=== PATIENT | male | born 1960 | race Caucasian/White ===

== ENCOUNTER 2019-07-10 10:54 | Outpatient (CLI) | payer MEDICARE | END 2019-07-10 10:55 | disposition home or self-care (01) | LOC: CTENTCT 10:54 | PROVIDERS: ATTEND Specialist | DX: R51 Headache (principal); J33.9 Nasal polyp, unspecified | CPT/HCPCS: 70486 ==

== ENCOUNTER 2019-08-01 11:40 | Emergency (ER) | payer MEDICARE ==
[2019-08-01] MEDS ORDERED: cefTRIAXone\\ROCEPHIN 2 GM VIAL ONE (13:12)
[2019-08-01 13:21] LABS: #Basophils 0.1 thou/uL (0.0-0.2); #Eosinphils 0.2 thou/uL (0.0-0.7); #Lymphocytes 1.9 thou/uL (1.20-3.40); #Monocytes 0.7 thou/uL (0.11-0.59); #Neutrophils 7.6 thou/uL (1.40-6.50); %Basophils 0.7 % (0.0-1.0); %Eosinophils 1.5 % (0.0-10.0); %Lymphocytes 17.9 % (21.0-51.0); %Neutrophils 72.9 % (42.0-75.0); Hemoglobin 15.2 g/dL (14.0-18.0); Mean Corpuscular HGB CONC 34.2 g/dL (32.0-36.0); Mean Corpuscular Hemoglobin 32.2 pg (27.0-31.0); Mean Corpuscular Volume 94.1 fL (78.0-98.0); Mean Platelet Volume 6.9 fL (7.4-10.4); Platelet Count 241 thou/uL (130-400); RBC Distribution Width 11.7 % (11.5-14.5); Red Blood Cell (RBC) Count 4.71 mill/uL (4.70-6.10); White Blood Cell (WBC) Count 10.4 thou/uL (4.8-10.8)
--- NOTE | 2019-08-01 13:41 | RAD ---
EXAM: 4 views of the right knee HISTORY: Right knee redness and pain COMPARISON: None FINDINGS: No knee effusion is seen. There is no evidence of acute fracture or dislocation. Moderate t ricompartmental degenerative changes are seen. No soft tissue swelling is present. IMPRESSION: Moderate right knee osteoarthritis without evidence of acute osseous abnormality.
[2019-08-01 13:43] LABS: ALT (SGPT) 39 U/L (8-55); AST (SGOT) 20 U/L (5-34); Albumin 4.7 g/dL (3.5-5.0); Alkaline Phosphatase 67 U/L (40-110); Anion Gap 11 mmol/L (10-20); BUN (Urea Nitrogen) 17 mg/dL (8.4-25.7); Bilirubin, Total 0.4 mg/dL (0.2-1.2); Calc. Creatinine Clearance 0 mL/min (70-130); Calcium 9.6 mg/dL (7.8-10.44); Carbon Dioxide 26 mmol/L (22-29); Chloride 101 mmol/L (98-107); Estimated GFR-MDRD 88; Glucose 120 mg/dL (70-105); Protein, Total 7.7 g/dL (6.0-8.3); Sodium 134 mmol/L (136-145)
== END 2019-08-01 15:20 | disposition home or self-care (01) ==
LOC: ERS 11:40
DX: M25.561 Pain in right knee (principal); I10 Essential (primary) hypertension; Z87.891 Personal history of nicotine dependence; Z79.899 Other long term (current) drug therapy
CPT/HCPCS: 36415; 80053; 83605; 85025; 87040; 96365; 96367; J0696; J3370

== ENCOUNTER → 2019-08-01 | Day surgery (SDC) | payer MEDICARE ==
[2019-07-31 15:01] VITALS: BMI 33.2
== END ==
LOC: SDC 11:58
PROVIDERS: ATTEND Specialist
DX: J32.4 Chronic pansinusitis (principal); J33.9 Nasal polyp, unspecified; J34.3 Hypertrophy of nasal turbinates; Z53.9 Procedure and treatment not carried out, unspecified reason

== ENCOUNTER 2019-08-08 10:16 | Day surgery (SDC) | payer MEDICARE ==
[2019-08-07 14:25] VITALS: BMI 32.9
[2019-08-08 10:56] LABS: INR-International Normal Ratio 0.9; PTT 26.9 SEC (22.9-36.1); Prothrombin Time 12.2 SEC (12.0-14.7)
[2019-08-08] MEDS ORDERED: Oxymetazoline HCl 0.05% ( 15 ML ) ONE (10:56)
[2019-08-08 11:09] LABS: Anion Gap 13 mmol/L (10-20); BUN (Urea Nitrogen) 17 mg/dL (8.4-25.7); Calc. Creatinine Clearance 144 mL/min (70-130); Calcium 9.5 mg/dL (7.8-10.44); Carbon Dioxide 23 mmol/L (22-29); Chloride 104 mmol/L (98-107); Estimated GFR-MDRD 89; Glucose 118 mg/dL (70-105); Potassium 4.4 mmol/L (3.5-5.1); Sodium 136 mmol/L (136-145)
[2019-08-08] MEDS ORDERED: Lidocaine 1% w/Epinephrine 1:100K 20 ML VIAL ONE (12:40)
[2019-08-08] MEDS ORDERED: EPINEPHrine 1 MG/ML AMP ONE (12:40)
[2019-08-08] MEDS ORDERED: Fentanyl 250 MCG/5 ML VIAL ONE (12:52)
[2019-08-08] MEDS ORDERED: Triamcinolone 40 MG/ML VIAL ONE (13:39)
--- NOTE | 2019-08-09 06:47 | OP ---
DATE OF PROCEDURE: 08/08/2019 PREOPERATIVE DIAGNOSES: Chronic sinusitis, nasal polyposis, hypertrophic inferior turbinates. POSTOPERATIVE DIAGNOSES: Chronic sinusitis, nasal polyposis, hypertrophic inferior turbinates. PROCEDURES PERFORMED: 1. Bilateral nasal endoscopy with polypectomy. 2. Bilateral nasal endoscopy with submucosal resection of inferior turbinates. 3. Bilateral nasal endoscopy with frontal sinusotomy. 4. Bilateral nasal endoscopy with maxillary antrostomy with removal of tissue. 5. Bilateral nasal endoscopy with total ethmoidectomy. 6. Bilateral nasal endoscopy with sphenoidotomy and stereotactic imaging. FINDINGS: Diffuse polyps were encountered at both maxillary sinuses. Blood loss was estimated approximately 200 mL. PROCEDURE IN DETAIL: BILATERAL NASAL ENDOSCOPY WITH POLYPECTOMY: Under endoscopic visualization, the nasal cavity was systematically examined and encountered large inflammatory polyps. These polyps were infiltrated 1% lidocaine with 1:100,000 epinephrine. The polyps were then addressed using the [employer] shaver. Then, the polyps were removed with care not to injure the surrounding normal mucosa. Samples of polyps were taken and sent for histologic evaluation. Bleeding was then controlled. BILATERAL NASAL ENDOSCOPY WITH SUBMUCOSAL RESECTION OF INFERIOR TURBINATES: After consent was obtained, the patient was identified, brought to the operating room, and placed on the operating room table in the supine position. Consent was obtained, notifying the patient of the possibility of additional infections, bleeding, brain injury, and eye/orbital injury. The patient was placed on the operating room table, and general endotracheal anesthesia and intravenous access was obtained. The patient was then positioned, prepped and draped for endoscopic sinus surgery. Nasal preparation included trimming nasal vestibular hairs and spraying in topical Afrin. We then placed Afrin topical solution on nasal pledgets and strategically located them intranasally. The perinasal mucosa was injected with 1% lidocaine with 1:100,000 epinephrine in the submucoperichondrial plane of the septum, lateral nasal wall, and anterior to the uncinate. The patient was then prepped and draped in a sterile fashion and positioned for endoscopic sinus surgery. With the 0-degree endoscope, the patient underwent systematic nasal endoscopy. There were no suspicious internasal masses or lesions identified. We then focused our attention to the osteomeatal complex region under the middle turbinate. The inferior turbinates were visualized with a 0 degree endoscope and outfractured with a Jv elevator. The inferior medial aspect was cauterized with the electrocautery. Hemostasis was obtained . After adequate airway was established, we turned our attention to the contralateral side and used a similar procedure. Again, a Jv elevator was used to outfracture inferior turbinates under endoscopic visualization. With a suction cautery, the free inferior medial aspect was cauterized under direct visualization along the length of the inferior turbinate. At this point, we then turned our attention to the contralateral side and proceeded with endoscopic sinus surgery. At the completion of the case, Rice keel splints were placed in the ethmoid cavities after the ethmoidectomy. There were no complications. The patient tolerated the procedure well and was discharged to the recovery room in stable condition prior to return to the preoperative day stay with ultimate discharge home. Prescriptions for pain medication and antibiotics were provided. The patient received intramuscular Depo-Medrol during the case. BILATERAL NASAL ENDOSCOPY WITH FRONTAL SINUSOTOMY: Following the ethmoidectomy, we then turned our attention to the frontal nasal recess. The agger nasi cells were addressed and the frontal recess was exposed. The natural opening to the frontal sinus was identified. At this point, any obstructing shrouds of mucosa and bony fragments were removed with a curved microdebrider. The wound was then examined and found to be free of any obstructing debris. We then turned our attention to the contralateral side and performed a similar procedure again under endoscopic visualization using a 45-degree scope. We were able to visualize the frontal recess. Obstructing shrouds of mucosa and bone were removed with a microdebrider. The natural os of frontal sinus was identified and enlarged and irrigated. At this point, the frontal sinusotomy was completed and we turned to the next area of concern. BILATERAL NASAL ENDOSCOPY WITH MAXILLARY ANTROSTOMY WITH REMOVAL OF TISSUE: The uncinate was then identified and the extent of the uncinate was appreciated by out-fracturing the uncinate with the ball-tip probe. We then used the sickle blade to disarticulate the uncinate from the lateral nasal wall. This was then removed with straight biting and upbiting punches with the remaining shrouds of mucosa and bony septum removed with the micro-debrider. The natural os of the maxillary sinus was then identified and enlarged with the maxillary punches and back biting forceps. BILATERAL NASAL ENDOSCOPY WITH TOTAL ETHMOIDECTOMY: The anterior face of the ethmoid bulla was entered and with the micro-debrider, dissection continued posteriorly to the ground lamella. The limits of dissection included the insertion of the middle turbinate, medial orbital wall, and base of skull. We similarly identified the frontal recess and removed shrouds of bone and debris in that region to obtain patency into the agger nasi region and frontal recess. We then entered the ground lamella and its anteroinferior aspect and proceeded posteriorly, opening the posterior ethmoid air-cell system. Again, the limits of dissection included the base of skull and medial orbital wall. BILATERAL NASAL ENDOSCOPY WITH SPHENOIDOTOMY AND STEREOTACTIC IMAGING: The anterior face of the sphenoid was identified and entered in its extreme anteroinferior aspect. A sphenoid punch was then used to enlarge the sphenoidotomy and no injury to the optic nerve or internal carotid artery occurred. Job ID: [id number]
--- NOTE | 2019-08-13 10:25 | EKG ---
Test Reason : PREOP Blood Pressure : / mmHG Vent. Rate : 078 BPM Atrial Rate : 078 BPM P-R Int : 150 ms QRS Dur : 082 ms QT Int : 382 ms P-R-T Axes : 060 024 045 degrees QTc Int : 435 ms Normal sinus rhythm ST abnormality, possible digitalis effect Abnormal ECG No previous ECGs available Confirmed by GINETTE BRADSHAW MD ([id number]) on 08/13/2019 10:25:15 AM Referred By: PETEY Confirmed By:GINETTE BRADSHAW MD
== END 2019-08-08 15:45 | disposition home or self-care (01) ==
LOC: SDC 10:16
PROVIDERS: ATTEND Specialist
PROC: 09TV8ZZ Resection of Left Ethmoid Sinus, Via Natural or Artificial Opening Endoscopic (ICD-10-PCS; principal; 2019-08-08)
PROC: 09TU8ZZ Resection of Right Ethmoid Sinus, Via Natural or Artificial Opening Endoscopic (ICD-10-PCS; 2019-08-08)
PROC: 09TL8ZZ Resection of Nasal Turbinate, Via Natural or Artificial Opening Endoscopic (ICD-10-PCS; 2019-08-08)
DX: J32.0 Chronic maxillary sinusitis (principal); J32.1 Chronic frontal sinusitis; J32.2 Chronic ethmoidal sinusitis; J32.3 Chronic sphenoidal sinusitis; J33.9 Nasal polyp, unspecified
CPT/HCPCS: 36415; 80048; 85610; 85730; 93005; 93010; J0171; J3010; J3301

== ENCOUNTER 2023-08-08 14:30 | Inpatient (IN) | payer MEDICARE ==
[2023-08-08 15:04] VITALS: BMI 32.5
[2023-08-10] MEDS ORDERED: fentaNYL 50 mcg/mL 1 mL Vial ONE ×7 (06:53→09:46)
[2023-08-10] MEDS ORDERED: Vancomycin 1 GM/200 ML (FROZEN) BAG ONE (07:19)
[2023-08-10] MEDS ORDERED: PROPOFOL 200 MG/20 ML VIAL ONE (07:19)
[2023-08-10] MEDS ORDERED: Lidocaine 1% PF 5 ML VIAL ONE (07:19)
[2023-08-10] MEDS ORDERED: Labetalol HCl 100 MG/20 ML VIAL ONE (07:19)
[2023-08-10] MEDS ORDERED: Ondansetron PF 4 MG/2 ML Vial ONE (07:19)
[2023-08-10] MEDS ORDERED: Morphine 2 MG/ML VIAL SLOW IVP PRN (09:10)
[2023-08-10] MEDS ORDERED: Morphine 4 MG/ML VIAL SLOW IVP PRN (09:10)
[2023-08-10] MEDS ORDERED: Ondansetron PF 4 MG/2 ML Vial IVP PRN (09:10)
[2023-08-10] MEDS ORDERED: ANTIBIOTICS IVPB PRN (09:33)
[2023-08-10] MEDS: Ketorolac Tromethamine 30 MG/ML VIAL IVP SCH ×3 (11:18→23:18)
[2023-08-10] MEDS: HYDROcodone/Acetaminophen 10/325 mg Tablet PO PRN ×2 (11:18→20:30)
[2023-08-10 12:21] LABS: #Monocytes 0.8 thou/uL (0.11-0.59); #Neutrophils 9.6 thou/uL (1.40-6.50); %Basophils 0.3 % (0.0-1.0); %Eosinophils 0.3 % (0.0-10.0); %Lymphocytes 9.6 % (21.0-51.0); %Monocytes 6.6 % (0.0-10.0); %Neutrophils 82.3 % (42.0-75.0); Hematocrit 28.2 % (42.0-52.0); Hemoglobin 8.9 g/dL (14.0-18.0); Mean Corpuscular HGB CONC 31.6 g/dL (32.0-36.0); Mean Corpuscular Volume 94.9 fl (78.0-98.0); Mean Platelet Volume 8.4 fL (7.4-10.4); Platelet Count 474 10x3/uL (130-400); RBC Distribution Width 14.2 % (11.5-14.5); Red Blood Cell (RBC) Count 2.97 mill/uL (4.70-6.10); White Blood Cell (WBC) Count 11.7 10x3/uL (4.8-10.8)
[2023-08-10 12:38] LABS: ALT (SGPT) 66 U/L (8-55); AST (SGOT) 28 U/L (5-34); Albumin 3.7 g/dL (3.4-4.8); Alkaline Phosphatase 127 U/L (40-110); Anion Gap 14 mmol/L (10-20); BUN (Urea Nitrogen) 24 mg/dL (8.4-25.7); Bilirubin, Total 0.2 mg/dL (0.2-1.2); Calc. Creatinine Clearance 96 mL/min (70-130); Carbon Dioxide 20 mmol/L (23-31); Chloride 102 mmol/L (98-107); Estimated GFR 66; Globulin 3.2 g/dL (2.4-3.5); Glucose 158 mg/dL (80-115); Protein, Total 6.9 g/dL (5.8-8.1); Sodium 131 mmol/L (136-145)
[2023-08-10] MEDS ORDERED: CEFAZOLIN 2 GM in Sodium Chloride 0.9% 100 ML IVPB SCH (14:45)
[2023-08-10] MEDS ORDERED: FLU VACC QS2023-24(6MOS UP)/PF 60 MCG/0.5 ML SYRINGE IM ONE (18:00)
[2023-08-10] MEDS: Mometasone 200 MCG/Formoterol 5 MCG 120 PUFF INHALER INH SCH (18:01)
[2023-08-10] MEDS: Aspirin 81 mg Enteric Coated Tablet PO SCH (20:30)
[2023-08-10] MEDS: Rifampin 300 MG CAP PO SCH (23:11)
[2023-08-10] MEDS: CEFAZOLIN 2 GM in Sodium Chloride 0.9% 100 ML IVPB SCH (23:12)
[2023-08-11] MEDS: HYDROcodone/Acetaminophen 10/325 mg Tablet PO PRN ×4 (04:44→22:51)
[2023-08-11] MEDS: Ketorolac Tromethamine 30 MG/ML VIAL IVP SCH ×2 (04:44→12:30)
[2023-08-11] MEDS: CEFAZOLIN 2 GM in Sodium Chloride 0.9% 100 ML IVPB SCH ×3 (04:44→22:50)
[2023-08-11 06:28] LABS: #Basophils 0.1 thou/uL (0.0-0.2); #Eosinphils 0.1 thou/uL (0.0-0.7); #Monocytes 0.7 thou/uL (0.11-0.59); #Neutrophils 5.4 thou/uL (1.40-6.50); %Basophils 0.6 % (0.0-1.0); %Eosinophils 1.4 % (0.0-10.0); %Lymphocytes 19.8 % (21.0-51.0); %Monocytes 9.2 % (0.0-10.0); %Neutrophils 68.1 % (42.0-75.0); Hematocrit 25.4 % (42.0-52.0); Hemoglobin 7.9 g/dL (14.0-18.0); Mean Corpuscular HGB CONC 31.1 g/dL (32.0-36.0); Mean Corpuscular Volume 96.6 fl (78.0-98.0); Mean Platelet Volume 8.4 fL (7.4-10.4); Platelet Count 409 10x3/uL (130-400); RBC Distribution Width 14.3 % (11.5-14.5); Red Blood Cell (RBC) Count 2.63 mill/uL (4.70-6.10); White Blood Cell (WBC) Count 7.9 10x3/uL (4.8-10.8)
[2023-08-11 06:50] LABS: Anion Gap 12 mmol/L (10-20); BUN (Urea Nitrogen) 23 mg/dL (8.4-25.7); Calc. Creatinine Clearance 98 mL/min (70-130); Calcium 8.6 mg/dL (7.8-10.44); Carbon Dioxide 23 mmol/L (23-31); Chloride 106 mmol/L (98-107); Estimated GFR 67; Glucose 130 mg/dL (80-115); Potassium 5.4 mmol/L (3.5-5.1); Sodium 136 mmol/L (136-145)
[2023-08-11] MEDS: Mometasone 200 MCG/Formoterol 5 MCG 120 PUFF INHALER INH SCH ×2 (08:13→18:23)
[2023-08-11] MEDS: Aspirin 81 mg Enteric Coated Tablet PO SCH ×2 (09:01→20:19)
[2023-08-11] MEDS: Amlodipine 5 MG TAB PO SCH (09:01)
[2023-08-11] MEDS: Multivitamin W/ Minerals 1 TAB PO SCH (09:01)
[2023-08-11] MEDS: buPROPion HCl 100 MG TAB PO SCH (09:01)
[2023-08-11] MEDS: Rifampin 300 MG CAP PO SCH ×2 (09:01→22:49)
[2023-08-11] MEDS: Lisinopril 20 MG TAB PO SCH (09:01)
[2023-08-11 11:23] LABS: Potassium 4.4 mmol/L (3.5-5.1)
[2023-08-11] MEDS: Atorvastatin Calcium 40 MG TAB PO SCH (20:19)
[2023-08-12] MEDS: CEFAZOLIN 2 GM in Sodium Chloride 0.9% 100 ML IVPB SCH ×3 (05:25→22:01)
[2023-08-12] MEDS: HYDROcodone/Acetaminophen 10/325 mg Tablet PO PRN ×3 (05:28→22:00)
[2023-08-12 05:56] LABS: #Eosinphils 0.2 thou/uL (0.0-0.7); #Monocytes 0.5 thou/uL (0.11-0.59); #Neutrophils 3.4 thou/uL (1.40-6.50); %Basophils 0.7 % (0.0-1.0); %Eosinophils 2.7 % (0.0-10.0); %Lymphocytes 24.5 % (21.0-51.0); %Monocytes 8.2 % (0.0-10.0); Mean Corpuscular HGB CONC 31.2 g/dL (32.0-36.0); Mean Corpuscular Hemoglobin 29.5 pg (27.0-31.0); Mean Corpuscular Volume 94.6 fl (78.0-98.0); Mean Platelet Volume 8.3 fL (7.4-10.4); Platelet Count 356 10x3/uL (130-400); Red Blood Cell (RBC) Count 4.04 mill/uL (4.70-6.10); White Blood Cell (WBC) Count 5.5 10x3/uL (4.8-10.8)
[2023-08-12 05:58] LABS: Hemoglobin 11.9 g/dL (14.0-18.0)
[2023-08-12 05:59] LABS: Hematocrit 38.2 % (42.0-52.0)
[2023-08-12 06:21] LABS: Anion Gap 13 mmol/L (10-20); BUN (Urea Nitrogen) 16 mg/dL (8.4-25.7); Calc. Creatinine Clearance 149 mL/min (70-130); Calcium 8.8 mg/dL (7.8-10.44); Carbon Dioxide 24 mmol/L (23-31); Cardiac Risk 3.6 (Less than 4.5); Chloride 104 mmol/L (98-107); Cholesterol 87 mg/dl (< 200 Desired); Estimated GFR 101; Glucose 119 mg/dL (80-115); HDL Cholesterol 24 mg/dL (>60 Neg Risk); LDL Cholesterol, Calculated 48 mg/dL; Potassium 4.5 mmol/L (3.5-5.1); Sodium 136 mmol/L (136-145); Triglycerides 77 mg/dL (Less than 150)
[2023-08-12] MEDS: Mometasone 200 MCG/Formoterol 5 MCG 120 PUFF INHALER INH SCH ×2 (07:46→19:34)
[2023-08-12] MEDS: buPROPion HCl 100 MG TAB PO SCH (08:48)
[2023-08-12] MEDS: Lisinopril 20 MG TAB PO SCH (08:48)
[2023-08-12] MEDS: Aspirin 81 mg Enteric Coated Tablet PO SCH ×2 (08:48→22:00)
[2023-08-12] MEDS: Multivitamin W/ Minerals 1 TAB PO SCH (08:48)
[2023-08-12] MEDS: Rifampin 300 MG CAP PO SCH ×2 (08:48→22:00)
[2023-08-12] MEDS: Amlodipine 5 MG TAB PO SCH (08:49)
[2023-08-12] MEDS ORDERED: Polyethylene Glycol 3350 17 GM Packet PO SCH (10:15)
[2023-08-12] MEDS: Acetaminophen 325 MG TAB PO PRN ×2 (16:16→22:01)
[2023-08-12] MEDS: Atorvastatin Calcium 40 MG TAB PO SCH (22:00)
[2023-08-12] MEDS: Senokot S 8.6-50 MG TAB PO SCH (22:01)
[2023-08-13] MEDS: CEFAZOLIN 2 GM in Sodium Chloride 0.9% 100 ML IVPB SCH ×3 (05:54→20:01)
[2023-08-13] MEDS: Acetaminophen 325 MG TAB PO PRN ×3 (05:58→21:56)
[2023-08-13] MEDS: HYDROcodone/Acetaminophen 10/325 mg Tablet PO PRN ×3 (05:58→21:56)
[2023-08-13] MEDS: Mometasone 200 MCG/Formoterol 5 MCG 120 PUFF INHALER INH SCH ×2 (07:10→19:28)
[2023-08-13] MEDS: Rifampin 300 MG CAP PO SCH ×2 (08:42→20:01)
[2023-08-13] MEDS: Multivitamin W/ Minerals 1 TAB PO SCH (08:42)
[2023-08-13] MEDS: Senokot S 8.6-50 MG TAB PO SCH ×2 (08:42→20:01)
[2023-08-13] MEDS: Lisinopril 20 MG TAB PO SCH (08:42)
[2023-08-13] MEDS: Amlodipine 5 MG TAB PO SCH (08:42)
[2023-08-13] MEDS: Aspirin 81 mg Enteric Coated Tablet PO SCH ×2 (08:43→20:01)
[2023-08-13] MEDS: Polyethylene Glycol 3350 17 GM Packet PO SCH (08:43)
[2023-08-13] MEDS: buPROPion HCl 100 MG TAB PO SCH (08:43)
[2023-08-13] MEDS: Atorvastatin Calcium 40 MG TAB PO SCH (20:01)
[2023-08-14] MEDS: CEFAZOLIN 2 GM in Sodium Chloride 0.9% 100 ML IVPB SCH ×2 (05:58→13:53)
[2023-08-14] MEDS: Acetaminophen 325 MG TAB PO PRN (06:00)
[2023-08-14] MEDS: Rifampin 300 MG CAP PO SCH (09:50)
[2023-08-14] MEDS: buPROPion HCl 100 MG TAB PO SCH (09:50)
[2023-08-14] MEDS: Amlodipine 5 MG TAB PO SCH (09:50)
[2023-08-14] MEDS: Multivitamin W/ Minerals 1 TAB PO SCH (09:50)
[2023-08-14] MEDS: Aspirin 81 mg Enteric Coated Tablet PO SCH (09:50)
[2023-08-14] MEDS: Lisinopril 20 MG TAB PO SCH (09:51)
[2023-08-14] MEDS: Polyethylene Glycol 3350 17 GM Packet PO SCH (09:52)
[2023-08-14] MEDS: Mometasone 200 MCG/Formoterol 5 MCG 120 PUFF INHALER INH SCH (10:57)
[2023-08-14 13:01] VITALS: BP 122/72; TEMP 98
== END 2023-08-14 15:37 | disposition home health service (06) | DRG 487 ==
LOC: SURG A 08-10 06:13
PROVIDERS: ADMIT Orthopaedic Surgery; ATTEND Family Medicine
PROC: 0SBC0ZZ Excision of Right Knee Joint, Open Approach (ICD-10-PCS; principal; 2023-08-10)
PROC: 02HV33Z Insertion of Infusion Device into Superior Vena Cava, Percutaneous Approach (ICD-10-PCS; 2023-08-11)
PROC: B5181ZA Fluoroscopy of Superior Vena Cava using Low Osmolar Contrast, Guidance (ICD-10-PCS; 2023-08-11)
PROC: B548ZZA Ultrasonography of Superior Vena Cava, Guidance (ICD-10-PCS; 2023-08-11)
PROC: 5A09357 Assistance with Respiratory Ventilation, Less than 24 Consecutive Hours, Continuous Positive Airway Pressure (ICD-10-PCS; 2023-08-11)
DX: T84.53XA Infection and inflammatory reaction due to internal right knee prosthesis, initial encounter (principal); J45.909 Unspecified asthma, uncomplicated; I10 Essential (primary) hypertension; Z95.0 Presence of cardiac pacemaker; Z98.49 Cataract extraction status, unspecified eye; Z98.890 Other specified postprocedural states; Z83.3 Family history of diabetes mellitus; E78.5 Hyperlipidemia, unspecified; F32.A Depression, unspecified; B95.61 Methicillin susceptible Staphylococcus aureus infection as the cause of diseases classified elsewhere; Z79.899 Other long term (current) drug therapy
CPT/HCPCS: 36415; 36569; 80048; 80053; 80061; 85025; 87070; 87076; 87077; 87186; 87205; C1751; J1885; J2405; J2704; J3010; J3370-JW; J3490

== ENCOUNTER 2023-08-08 14:43 | Outpatient (CLI) | payer MEDICARE ==
[2023-08-08 15:34] LABS: Hematocrit 30.5 % (38.8-50.0); Hemoglobin 9.6 g/dL (13.5-17.5); Mean Corpuscular HGB CONC 31.5 g/dL (32.0-36.0); Mean Corpuscular Hemoglobin 29.7 pg (27.0-33.0); Mean Corpuscular Volume 94.4 fl (81.2-95.1); Mean Platelet Volume 8.7 fl (7.4-10.4); Platelet Count 565 10x3/uL (150-450); Red Blood Cell (RBC) Count 3.23 10x6/uL (4.32-5.72)
[2023-08-08 15:52] LABS: Anion Gap 16 mmol/L (10-20); BUN (Urea Nitrogen) 20 mg/dL (8.4-25.7); Calc. Creatinine Clearance 0 mL/min (70-130); Calcium 9.2 mg/dL (7.8-10.44); Carbon Dioxide 22 mmol/L (23-31); Chloride 104 mmol/L (98-107); Estimated GFR 49; Glucose 120 mg/dL (80-115); Potassium 4.8 mmol/L (3.5-5.1); Sodium 137 mmol/L (136-145)
== END 2023-08-08 14:44 | disposition home or self-care (01) ==
LOC: LABBT 14:43
PROVIDERS: ATTEND Orthopaedic Surgery
DX: Z01.818 Encounter for other preprocedural examination (principal); T84.53XA Infection and inflammatory reaction due to internal right knee prosthesis, initial encounter; Z86.14 Personal history of Methicillin resistant Staphylococcus aureus infection
CPT/HCPCS: 80048; 85027; 93005; 93010